=== PATIENT | male | born 1970 | race Caucasian/White ===

== ENCOUNTER 2022-03-04 17:06 | Emergency (ER) | payer BC ==
[~2022-03-04] VITALS: Ht 172.7 cm; Wt 83.9 kg
[~2022-03-04 17:06] MED LIST: AMLODIPINE BESYL5 MG PO; CHLO25 PO; OMEPRAZOLE MAGN20 M1 PO; Robaxin750 MG PO; SERT100 PO; TRAZ100 PO
[2022-03-04] MEDS ORDERED: ERYT1OIN BOTHEYES (18:50)
== END 2022-03-04 18:59 | disposition home or self-care (01) ==
LOC: ER 17:06
DX: H18.892 Other specified disorders of cornea, left eye (principal); I10 Essential (primary) hypertension; J44.9 Chronic obstructive pulmonary disease, unspecified; K21.9 Gastro-esophageal reflux disease without esophagitis; F17.210 Nicotine dependence, cigarettes, uncomplicated; Z96.612 Presence of left artificial shoulder joint; Z79.899 Other long term (current) drug therapy
CPT/HCPCS: A9270

== ENCOUNTER 2022-03-30 20:28 | Emergency (ER) | payer BC ==
[~2022-03-30] VITALS: Ht 177.8 cm; Wt 89.8 kg
[~2022-03-30 20:28] MED LIST changes: +ERYT1OIN BOTHEYES
== END 2022-03-30 21:22 | disposition home or self-care (01) ==
LOC: ER 20:28
DX: K04.7 Periapical abscess without sinus (principal); Z79.899 Other long term (current) drug therapy; F17.210 Nicotine dependence, cigarettes, uncomplicated
CPT/HCPCS: 99282

== ENCOUNTER 2022-05-27 18:54 | Emergency (ER) | payer BC ==
[~2022-05-27] VITALS: Ht 180.3 cm; Wt 95.2 kg
[2022-05-27 19:27] LABS: BASOPHILS ABSOLUTE AUTO 0.02 K/mm3 (0.00-0.23); BASOPHILS PERCENT AUTO 0 % (0-2); EOSINOPHILS ABSOLUTE AUTO 0.16 K/mm3 (0.00-0.68); EOSINOPHILS PERCENT AUTO 2 % (0-6); Hematocrit 46.6 % (37.0-53.0); Hemoglobin 15.8 g/dL (13.5-17.5); IMMATURE GRAN ABSOLUTE AUTO 0.04 K/mm3 (0.00-0.10); IMMATURE GRAN PERCENT AUTO 0 % (0-1); LYMPHOCYTES ABSOLUTE AUTO 1.76 K/mm3 (0.84-5.20); LYMPHOCYTES PERCENT AUTO 18 % (21-46); MONOCYTES ABSOLUTE AUTO 0.91 K/mm3 (0.16-1.47); MONOCYTES PERCENT AUTO 9 % (4-13); Mean Corpuscular HGB Conc 33.9 g/dL (31.5-36.5); Mean Corpuscular Volume 103 fL (80-100); Mean Platelet Volume 9.6 fL (9.1-12.4); NEUTROPHILS ABSOLUTE AUTO 7.12 K/mm3 (1.96-9.15); NEUTROPHILS PERCENT AUTO 71 % (41-73); Platelet Count 129 K/mm3 (150-400); RDW Coefficient Variation 14.5 % (11.7-14.2); RDW Standard Deviation 55.3 fL (35.1-46.3); Red Blood Cell Count 4.52 M/mm3 (4.30-5.90); White Blood Cell Count 10.01 K/mm3 (4.00-11.30)
[2022-05-27 19:44] LABS: Albumin, Blood 3.2 g/dL (3.4-5.0); Albumin/Globulin Ratio 0.9 (0.8-1.8); Bilirubin, Direct 0.2 mg/dL (0.0-0.3); Bilirubin, Indirect 0.3 mg/dL (0.1-0.7); Bilirubin, Total 0.5 mg/dL (0.1-1.0); Bun/Creatinine Ratio 3.8 (12.0-20.0); Calcium, Blood 9.1 mg/dL (8.5-10.1); Creatinine, Blood 0.8 mg/dL (0.60-1.20); Globulin, Blood 3.6 g/dL (2.2-4.0); Potassium, Blood 3.1 mmol/L (3.5-5.5); Total Protein, Blood 6.8 g/dL (6.4-8.2)
== END 2022-05-27 21:00 | disposition left against medical advice (07) ==
LOC: ER 18:54
PROVIDERS: Physician Assistant
DX: R11.10 Vomiting, unspecified (principal); Z79.899 Other long term (current) drug therapy; Z53.21 Procedure and treatment not carried out due to patient leaving prior to being seen by health care provider
CPT/HCPCS: 36415; 80048; 80076; 82140; 83690; 85025; 99281; G0480

== ENCOUNTER 2022-05-29 20:22 | Emergency (ER) | payer BC ==
[~2022-05-29] VITALS: Ht 180.3 cm; Wt 99.8 kg
[2022-05-29] MEDS ORDERED: ASPI500 PO (20:38)
[2022-05-29] MEDS ORDERED: ACET500 (20:38)
[2022-05-29] MEDS ORDERED: CHLO25 PO (22:05)
[2022-05-29] MEDS ORDERED: B-1100 M1 PO (22:09)
[2022-05-29] MEDS ORDERED: ONDA4ODT MM (22:09)
[2022-05-29] MEDS ORDERED: FOLI1 PO (22:09)
== END 2022-05-29 22:19 | disposition home or self-care (01) ==
LOC: ER 20:22
DX: F10.129 Alcohol abuse with intoxication, unspecified (principal); J44.9 Chronic obstructive pulmonary disease, unspecified; F17.210 Nicotine dependence, cigarettes, uncomplicated; Y90.9 Presence of alcohol in blood, level not specified; Z71.41 Alcohol abuse counseling and surveillance of alcoholic; Z79.82 Long term (current) use of aspirin; Z79.899 Other long term (current) drug therapy; Z96.612 Presence of left artificial shoulder joint
CPT/HCPCS: A9270

== ENCOUNTER 2022-09-07 14:41 | Emergency (ER) | payer BC ==
[~2022-09-07] VITALS: Ht 180.3 cm; Wt 86.2 kg
[~2022-09-07 14:41] MED LIST changes: +ACET500; +ASPI500 PO; +B-1100 M1 PO; +FOLI1 PO; +ONDA4ODT MM
[2022-09-07 15:26] LABS: BASOPHILS ABSOLUTE AUTO 0.02 K/mm3 (0.00-0.23); BASOPHILS PERCENT AUTO 0 % (0-2); EOSINOPHILS ABSOLUTE AUTO 0.04 K/mm3 (0.00-0.68); EOSINOPHILS PERCENT AUTO 1 % (0-6); Hemoglobin 16.3 g/dL (13.5-17.5); IMMATURE GRAN ABSOLUTE AUTO 0.01 K/mm3 (0.00-0.10); IMMATURE GRAN PERCENT AUTO 0 % (0-1); LYMPHOCYTES ABSOLUTE AUTO 1.59 K/mm3 (0.84-5.20); LYMPHOCYTES PERCENT AUTO 25 % (21-46); MONOCYTES PERCENT AUTO 6 % (4-13); Mean Corpuscular HGB 35.1 pg (26.0-34.0); Mean Corpuscular Volume 103 fL (80-100); NEUTROPHILS ABSOLUTE AUTO 4.37 K/mm3 (1.96-9.15); NEUTROPHILS PERCENT AUTO 68 % (41-73); Platelet Count 210 K/mm3 (150-400); RDW Standard Deviation 52.9 fL (35.1-46.3); Red Blood Cell Count 4.65 M/mm3 (4.30-5.90); White Blood Cell Count 6.43 K/mm3 (4.00-11.30)
[2022-09-07 15:36] LABS: Albumin, Blood 3.3 g/dL (3.4-5.0); Albumin/Globulin Ratio 0.9 (0.8-1.8); Bilirubin, Total 0.4 mg/dL (0.1-1.0); Bun/Creatinine Ratio 6.7 (12.0-20.0); Calcium, Blood 8.3 mg/dL (8.5-10.1); Creatinine, Blood 0.75 mg/dL (0.60-1.20); Globulin, Blood 3.7 g/dL (2.2-4.0); Potassium, Blood 3.3 mmol/L (3.5-5.5)
== END 2022-09-07 16:00 | disposition home or self-care (01) ==
LOC: ER 14:41
PROVIDERS: Physician Assistant
DX: R07.9 Chest pain, unspecified (principal); Z79.82 Long term (current) use of aspirin; Z79.899 Other long term (current) drug therapy; Z53.29 Procedure and treatment not carried out because of patient's decision for other reasons
CPT/HCPCS: 71045; 80053; 84484; 85025; 93005; 93010

== ENCOUNTER 2023-06-21 20:08 | Emergency (ER) | payer BC ==
[~2023-06-21] VITALS: Ht 177.8 cm; Wt 84.8 kg
[~2023-06-21 20:08] MED LIST changes: +DEPO-TESTO200 MG/18 IM; +GABA100 PO; +MULVITA PO; +Naltrexone HCl50 MG PO; +Nortriptyline H75 MG PO
[2023-06-21 20:10] VITALS: BP 128/72
[2023-06-21] MEDS ORDERED: BENADRYL25 MG PO (20:36)
== END 2023-06-21 20:52 | disposition home or self-care (01) ==
LOC: ER 20:08
DX: T63.441A Toxic effect of venom of bees, accidental (unintentional), initial encounter (principal); J44.9 Chronic obstructive pulmonary disease, unspecified; F17.210 Nicotine dependence, cigarettes, uncomplicated
CPT/HCPCS: 99284